=== PATIENT | female | born 1970 | race Caucasian/White ===

== ENCOUNTER → 2021-01-06 07:46 | Outpatient (CLI) | payer OTHER, SELFPAY ==
[2021-01-06 08:10] LABS: Basophils % 0.6 % (0.1-2.0); Eosinophils # 0.2 K/mm3 (0.0-0.4); Hemoglobin 14.1 g/dL (12.2-16.2); Lymphocytes % 35.2 % (10-50); Mean Corpuscular HGB Conc 33.6 g/dL (31.8-35.4); Mean Corpuscular Volume 89.3 fl (81-99); Mean Platelet Volume 8.4 fl (7.4-10.4); Monocytes # 0.2 K/mm3 (0.1-1.0); Monocytes % 4.2 % (1.7-9.3); Neutrophils # 3.2 K/mm3 (1.8-7.8); Neutrophils % 56.8 % (37.0-80.0); Platelet Count 182 K/mm3 (142-424); Red Blood Count 4.71 M/mm3 (4.20-5.40); Red Cell Distribution Width 13.4 % (11.5-17.5); Urine Pregnancy, HCG Qual. Negative (Negative); White Blood Count 5.7 K/mm3 (4.8-10.8)
[2021-01-06 09:01] LABS: Coronavirus 19 IgG Antibody Negative (Negative); Coronavirus 19 IgM Antibody Negative (Negative)
[2021-01-06 09:34] LABS: Alanine Aminotransferase 15 U/L (12-78); Albumin Level 4.4 g/dl (3.5-5.0); Albumin/Globulin Ratio 1.3 (1.1-1.8); Alkaline Phosphatase 78 U/L (38-126); Anion Gap 12.3 mEq/L (5-15); Aspartate Amino Transferase 20 U/L (14-36); Bilirubin,Total 0.7 mg/dl (0.2-1.3); Blood Urea Nitrogen 12 mg/dl (7-17); Calcium 9.3 mg/dl (8.4-10.2); Carbon Dioxide 22 mmol/L (22.0-30.0); Chloride 106 mmol/L (98-107); Estimated Glomerular Filt Rate 67 ml/min (>60); GFR (African American) 81 ML/MIN (>60); Globulin 3.3 g/dL (1.3-3.2); Glucose 102 mg/dl (74-100); Potassium 4.3 mmoL/L (3.5-5.1); Sodium 136 mmol/L (136-145); Total Protein,Serum 7.7 g/dl (6.3-8.2)
== END ==
PROVIDERS: Visit Provider Surgery
DX: Z01.818 Encounter for other preprocedural examination (principal); Z20.822 Contact with and (suspected) exposure to COVID-19; K80.20 Calculus of gallbladder without cholecystitis without obstruction
CPT/HCPCS: 36415; 80053; 81025; 85025; 86328

== ENCOUNTER 2021-01-08 06:05 | Day surgery (SDC) | payer OTHER, SELFPAY ==
[2021-01-07 08:02] VITALS: BMI 36.6
[2021-01-08] VITALS (12 sets, daily range): BP systolic 117–155; BP diastolic 72–93; PULSE 60–94; RESP 16–18; TEMP 36.4–43; O2SAT 95–98
--- NOTE | 2021-01-08 06:41 | P.PN_ITS ---
[facility] Anesthesia Checklist - Structural Data Admitted From: Home Planned Operative Procedure/s: twyla bere Consent for Planned Operative Procedure(s) Verified: Yes - Additional verifications Anesthesia Reactions: No Hx Blood Transfusions: No Blood Transfusion Reaction: No - Airway Assessment C-Spine Mobility Assessed: Yes TMJ Mobility Assessed: Yes Dentition: Good Dentition - Neurological Assessment Level of Consciousness: Awake, Alert, Appropriate - Anesthesia Plan Anesthesia Risk discussed: Yes Anesthesia Plan: Verified ASA Class: I Anesthesia Type: General [facility] History I have reviewed the patient's past medical history: Yes Medical History: Reports:: Asthma Denies:: Cancer, Diabetes Mellitus Type 1, Diabetes Mellitus Type 2, Internal Pacemaker, MRSA, Seizures *Have you ever received a pneumonia vaccine?: Yes *Have you received a flu vaccine this season?: No Other Medical History: Reports: Thyroid Disease. Denies: Blood Transfusion Reaction Anesthesia experience/problems:: none Other Surgeries: Yes: Colonoscopy. No: Pacemaker Amputation: No Fractures: No - *Social History Last grade of school completed: High school graduate Smoking Status: Never smoker Alcohol Intake: never Substance Use Type: denies use *Occupational Status:: employed Housing: house Household Members: family *Travel in the last 8 weeks: None Family Hx:: No significant family history
--- NOTE | 2021-01-08 08:14 | HMH.OPNOTE ---
Date of procedure: 01/08/21 Pre-op Diagnosis:: Symptomatic cholelithiasis Post-op Diagnosis:: Chronic calculus cholecystitis Procedure performed:: Laparoscopic cholecystectomy Surgeon:: Merrick Velásquez MD DIRECTOR OF GRADUATE MEDICAL EDUCATION:: Tico Ojeda Anesthesia: GETA Estimated blood loss (mL): 15 Operative findings:: Significant pericholecystic fat stranding Infundibular thickening Moderately enlarged node of [place] Operative note:: After informed consent was obtained, the patient was taken to the operating room and placed in the supine position. General anesthesia was induced and the abdomen was prepped and draped in a sterile fashion. After infiltration with local anesthetic an infraumbilical incision was made. A Veress needle was placed in position. The abdomen was insufflated. A 5 mm optical trocar was placed in position. Under direct visualization, a 12 mm trocar was placed in the subxiphoid position and 2 additional 5 mm trocars were placed in the right upper quadrant. The gallbladder was elevated up and over the liver margin. The tissue around the cystic duct was carefully dissected. 3 clips were placed proximally and the duct was transected with harmonic henrik. Harmonic henrik were then utilized to dissect the gallbladder away from the liver margin with careful attention to the control of the cystic artery. The gallbladder was placed in a retrieval bag and removed through the subxiphoid trocar site. The right upper quadrant was thoroughly irrigated. No active bleeding or bile leak was noted. Fascia at the subxiphoid trocar site was reapproximated utilizing the NeoClose device. The remaining trocars were removed. All wounds were irrigated and skin was closed with 4-0 Monocryl in a subcuticular fashion. Steri-Strips were applied. The patient's anesthetic agents were reversed and extubation was completed prior to transfer to recovery in stable condition. Condition: stable Disposition: PACU Specimens:: Gallbladder Complications:: No immediate
--- NOTE | 2021-01-08 08:21 | P.PN_ITS ---
[facility] Anesthesia Record Part I Intake, IV Amount: 1,200 Estimated blood loss (mL): 10 Urine output (mL): 0 Blood Pressure: 138/77 SaO2: 98 Pulse Rate: 94 Respiratory Rate: 16 Temperature: 99 F Patient is:: Drowsy, Stable Stable to PACU at:: 08:15
--- NOTE | 2021-01-08 08:46 | PC.NURSE ---
0842-detailed report called to DIA Shahid \ 0845-pt transported to post op via stretcher w/bronwyn rails up and left in care of DIA Shahid vss pt stable
--- NOTE | 2021-01-08 10:45 | HMH.ANESII ---
[facility] Anesthesia Record Part II Discharge Time: 08:45 Destination: Surgical Day Care (OP Surgery) PACU nurse assessment reviewed?: Yes Patient Condition:: Good Anesthesia Complications:: None Swallowing reflex intact?: Yes Cyanosis?: No Blood Pressure: 124/72 Pulse Rate: 68 Temperature: 97.6 F Mental Status: Alert & Oriented Pain level:: 0 Nausea and/or vomitting:: None Intake, IV Amount: 0
== END 2021-01-08 09:50 | disposition home or self-care (01) ==
PROVIDERS: PCP Nurse Practitioner Family; Visit Provider Surgery
PROC: 0FT44ZZ Resection of Gallbladder, Percutaneous Endoscopic Approach (ICD-10-PCS; CPT 47562; principal; 2021-01-08 07:30)
DX: K80.10 Calculus of gallbladder with chronic cholecystitis without obstruction; J45.909 Unspecified asthma, uncomplicated; E07.9 Disorder of thyroid, unspecified; Z79.899 Other long term (current) drug therapy; Z88.0 Allergy status to penicillin
CPT/HCPCS: 47562; 96374; J2405; J2710

== ENCOUNTER → 2022-08-05 11:01 | Outpatient (CLI) | payer OTHER, SELFPAY ==
--- NOTE | 2022-08-05 11:05 | CA_ITS ---
FINAL REPORT TECHNIQUE: Compression ortega scale and Doppler evaluation CLINICAL HISTORY: PT C/O LUMP DISTAL LATERAL CALF X SEVERAL DAYS,NKI FINDINGS: Femoral and popliteal veins show normal compressibility and flow. Visualized portion of the calf veins are patent by Doppler exam. No fluid collection or mass in the posterolateral left calf. IMPRESSION: No evidence of left lower extremity deep venous thrombosis Reviewed, Interpreted and Dictated by Edwin Vaughan MD Transcribed by Yousuf Garcia Authenticated and [facility]
== END ==
PROVIDERS: Visit Provider Nurse Practitioner Family
DX: R22.42 Localized swelling, mass and lump, left lower limb (principal)
CPT/HCPCS: 93971

== ENCOUNTER 2024-10-03 16:52 | Emergency (ER) | payer OTHER, SELFPAY ==
[2024-10-03 16:54] VITALS: BP 125/82; PULSE 95; RESP 18; TEMP 36.6; O2SAT 97; BMI 32.5
[2024-10-03 17:03] VITALS: BP 125/82; PULSE 74; O2SAT 100
--- OUTSIDE RECORDS SUMMARY | 2024-10-03 17:13 | XMS_ITS | Encounter Summary ---
Author Organization Healthcare Address [address] [place] [address] Care Team Providers Care Seed Laboratory Assistant Name Role Phone Unavailable Primary Care Provider Unavailabl e Encounter Details Date Type Department Care Team (Late st Contact Info) Description 05/25/2015 [facility] Vitals Encounter [facility] [address] [place] [address] Provider, MD Suzie [address] [place] [address] Social History Tobacco Use Types Packs/Day Years Used Date Smoking Tobacco: Never Assessed Comments Unknown Sex and Gender Information Value Date Recorded Sex Assigned at Not on file Legal Sex Female 6:59 PM EDT Gender Identity Not on file Sexual Orientation Not on file documented as of this encounter Last Filed Vital Signs Vital Sign Reading Time Taken Comments Blood Pressure - - Pulse - - Temperature - - Respiratory Rate - - Oxygen Saturation - - Inhaled Oxygen Concentration - - Weight 76.2 kg (167 lb 14.4 oz) 015 11:23 AM EDT Height 165.1 cm (5' 5 ) 05/25/2015 11:2 3 AM EDT Body Mass Index 27.94 05/25/2015 11:23 AM EDT documented in this encounter Plan of Treatment Not on file documented as of this encounter Visit Diagnoses Not on filedocumented in this encounter
--- OUTSIDE RECORDS SUMMARY | 2024-10-03 17:13 | XMS_ITS | Encounter Summary ---
Author Organization [facility] [place] [address] Care Team Providers Care Training Professional Name Role Phone Deepthi Liu APRN Primary Care Provider Encounter Details Date Type Department Care Team (Latest Contact Info) Description 04/22/2022 Travel Social History Tobacco Use Types Packs/Day Years Used Date Smoking Tobacco: Never Assessed Comments Unknown Sex and Gender Information Value Date Recorded Sex Assigned at Not on file Legal Sex Female 11:43 AM EDT Gender Identity Not on file Sexual Orientation Not on file COVID-19 Exposure Response Date Recorded In the last 10 days, have yo u been in contact with someone who was confirmed or suspected to have Coronavirus/COVID-19? No / Unsure 04/22/2022 11:50 AM EDT documented as of this encounter Plan of Treatment Not on file documented as of this encounter Visit Diagnoses Not on filedocumented in this encounter Care Teams Training Professional Relationship Specialty Start Date End Date Deepthi Liu APRN [address] [facility] [place] [id number] PCP - General Nurse Practitioner-Family 03/25/22 documented as of this encounter
--- OUTSIDE RECORDS SUMMARY | 2024-10-03 17:13 | XMS_ITS | Encounter Summary ---
Author Organization [place] [address] Care Team Providers Care Vp Informatics Name Role Phone Deepthi Liu APRN Primary Care Provider [phone] Reason for Referral * Mammography (Routine) - Closed Specialty Diagnoses / Procedures Referred By Marco rojas Referred To Contact Radiology Diagnoses Abnormal mammogram Procedures MM MAMMO DIGITAL PARTH DIAGN LEFT MM MAMMO DIGITAL PARTH DIAGN LEFT Deepthi Liu, SOLANGE [address] [facility] [place] [address] Phone: tel: fax: Referral ID Status Reason Start Date Expiration Date Visits Re quested Visits Authorized [id number] Closed 04/14/2022 04/14/2024 1 1 Reason for Visit * Mammography (Routine) - Closed Specialty Diagnoses / Procedures Referred By Marco rojas Referred To Contact Radiology Diagnoses Abnormal mammogram Procedures MM MAMMO DIGITAL PARTH DIAGN LEFT MM MAMMO DIGITAL PARTH DIAGN LEFT Deepthi Liu APRN [address] [place] [address] [place] [address] Phone: tel: fax: Referral ID Status Reason Start Date Expiration Date Visits Re quested Visits Authorized [id number] Closed 04/14/2022 04/14/2024 1 1 Encounter Details Date Type Department Care Team (Latest Contact Info) Description 04/22/2022 12:26 PM EDT - 04/22/2022 11:59 PM EDT Hospital Encounter [facility] Mamm[facility] [place] [address] Ra Noeama Dianaan, PUNCHER AND FASTENER [address] [facility] [place] [address] Abnormal mammogram Discharge Disposition: Home or Self Care Social History Tobacco Use Types Packs/Day Years [...] AM EDT documented as of this encounter Discharge Disposition Disposition Code Departure Means Destination Home or Self Care documented in this encounter Plan of Treatment Not on file documented as of this encounter Procedures Procedure Name Priority Date/Time Associated Diagnosis Comments MM MAMMO DIGITAL PARTH DIAGN LEFT Routine 04/22/2022 12:38 PM EDT Abnormal mammogram documented in this encounter Results * MM MAMMO DIGITAL PARTH DIAGN LEFT (04/22/2022 12:38 PM EDT) Anatomical Region Laterality Modality Breast Left Mammography 04/22/2022 1:21 PM EDT Impressions 04/22/2022 1:21 PM EDT Negative ??([id number]) There is no mammographic evidence of malignancy in the left breast. ~ RECOMMENDATION: Routine screening mammogram in 1 year. The above findings and recommendations were discussed with the patient in person on the date of the exam by the technologist. ~ DISCLAIMER * Any patient with a palpable abnormality, unexplained by breast imaging, should be managed on clinical basis by the attending physician. * Breast imaging has a false negative rate of 15%. * The patient was notified by mail of the results of this examination. *The patient's information was entered into a reminder system with a target due date for the next mammogram, in accordance with the [employer] and the Society of Breast Imaging recommendations. Narrative 04/22/2022 1:21 PM EDT Procedure:MM MAMMO DIGITAL PARTH DIAGN LEFT ~ Reason for exam: addl evaluation requested from abnormal screening. The patient is a 51-year-old female who presents as a callback from screening for an asymmetry in the lateral left breast, only well seen on the CC view. ~ MM MAMMO DIGITAL PARTH DIAGN LEFT CC and MLO view(s) were taken of the left breast. The breast tissue is heterogeneously dense. ??This may lower the sensitivity of mammography. Prior study comparison: Compared with prior studies, the most recent being 03/25/22. On the additional views of the left breast, there are no suspicious masses, microcalcifications, or areas of architectural distortion. The asymmetry elongates on the additional views and is attributed to a summation artifact. ~ Procedure Note Cris Kimball MD - 04/22/2022 Procedure:MM MAMMO DIGITAL PARTH DIAGN LEFT ~ Reason for exam: addl evaluation requested from abnormal screening. The patient is a 51-year-old female who presents as a callback from screening for an asymmetry in the lateral left breast, only well seen on the CC view. ~ MM MAMMO DIGITAL PARTH DIAGN LEFT CC and MLO view(s) were taken of the left breast. The breast tissue is heterogeneously dense. This may lower thesensitivity of mammography. Prior study comparison: Compared with prior studies, the most recentbeing 03/25/22. On the additional views of the left breast, there are no suspiciousmasses, microcalcifications, or areas of architectural distortion. The asymmetry elongates on the additional views and is attributed to a summation artifact. ~ IMPRESSION: Negative ([id number]) There is no mammographic evidence of malignancy in the left breast. ~ RECOMMENDATION: Routine screening mammogram in 1 year. The above findings and recommendations were discussed with the patientin person on the date of the exam by the technologist. ~ DISCLAIMER * Any patient with a palpable abnormality, unexplained by breast imaging, should be managed on clinical basis by the attending physician. * Breast imaging has a false negative rate of 15%. * The patient was notified by mail of the results of this examination. *The patient's information was entered into a reminder system with atarget due date for the next mammogram, in accordance with the [employer] and the Society of Breast Imaging recommendations. Deepthi Liu APRN IM MAMMOGRAPHY ORDERABLES Final Result documented in this encounter Visit Diagnoses Diagnosis Abnormal mammogram Abnormal mammogram, unspecified documented in this encounter Care Teams Vp Informatics Relationship Specialty Start Date End Date Deepthi Liu APRN [address] [place] [address] [place] [address] PCP - General Nurse Practitioner-Family 03/25/22 documented as of this encounter
--- OUTSIDE RECORDS SUMMARY | 2024-10-03 17:13 | XMS_ITS | Clinical Summary ---
Author Organization [facility] C T Address [address] [facility] [address] Phone Care Team Providers Care Medical Support Assistant Name Role Phone Deepthi Liu Osmin SOLANGE Primary Care Provider Social History Tobacco Use Types Packs/Day Years Used Date Smoking Tobacco: Never Assessed Comments Unknown Sex and Gender Information Value Date Recorded Sex Assigned at Not on file Legal Sex Female 11:43 AM EDT Gender Identity Not on file Sexual Orientation Not on file Plan of Treatment Health Maintenance Due Date Last Done Comments Annual Wellness Exam 1974 DTaP/TDaP/Td (1 - Tdap) 1991 Hepatitis B Vaccine (1 of 3 - 19+ 3-dose series) 1991 Cervical Cancer Screening 1993 Pap Smear 1993 HPV/Pap Cotest 2002 Cologuard 2017 Colon Cancer Screening 2017 Colonoscopy 2017 FIT 2017 Sigmoidoscopy 2017 Virtual Colonography 2017 Zoster (1 of 2) 2022 Breast Cancer Screening 04/22/2024 04/22/20, 03/25/2022 COVID-19 Vaccine (1 - 2023-2 5 season) 2024 Influenza Vaccine (#1) 2024 Pneumococcal Vaccine 0-64 Aged Out No longer eligible based on patient's age to complete this topic Procedures Procedure Name Priority Date/Time Associated Diagnosis Comments MM MAMMO DIGITAL PARTH DIAGN LEFT Routine 04/22/2022 12:38 PM EDT Abnormal mammogram from Last 3 Months or Most Recently Relevant to Health Maintenance Results * MM MAMMO DIGITAL PARTH DIAGN LEFT (04/22/2022 12:38 PM EDT) Anatomical Region Laterality Modality Breast Left Mammography 04/22/2022 1:21 PM EDT Impressions 04/22/2022 1:21 PM EDT Negative ??([id number]) There is no mammographic evidence of malignancy [...] the next mammogram, in accordance with the [employer] and the Society of [...] to a summation artifact. ~ IMPRESSION: Negative ([id number]) There is no mammographic evidence of malignancy [...] the next mammogram, in accordance with the [employer] and the Society of Breast Imaging recommendations. Deepthi Liu APRN [facility] MAMMOGRAPHY ORDERABLES Final Result from Last 3 Months or Most Recently Relevant to Health Maintenance Insurance [employer] Care Teams Medical Support Assistant Relationship Specialty Start Date End Date Deepthi Liu APRN [address] [place] [address] [place] [address] PCP - General Nurse Practitioner-Family 03/25/22
--- OUTSIDE RECORDS SUMMARY | 2024-10-03 17:13 | XMS_ITS | Referral Summary ---
Author Organization [facility][1] [facility] Kartik Address [address] [facility] [place] [address] Phone Care Team Providers Care Fitness Attendant Name Role Phone Deepthi Liu SOLANGE Primary Care Provider [phone] Social History Tobacco Use Types Packs/Day Years Used Date Smoking Tobacco: Never Assessed Comments Unknown Sex and Gender Information Value Date Recorded Sex Assigned at Not on file Legal Sex Female 11:43 AM EDT Gender Identity Not on file Sexual Orientation Not on file Plan of Treatment Not on file Procedures Procedure Name Priority Date/Time Associated Diagnosis Comments MM MAMMO DIGITAL PARTH DIAGN LEFT Routine 04/22/2022 12:38 PM EDT Abnormal mammogram from Last 3 Months or Most Recently Relevant to Health Maintenance Results * MM MAMMO DIGITAL PARTH DIAGN LEFT (04/22/2022 12:38 PM EDT) Anatomical Region Laterality Modality Breast Left Mammography 04/22/2022 1:21 PM EDT Impressions 04/22/2022 1:21 PM EDT Negative ??([id number]) There is no mammographic evidence of malignancy [...] the next mammogram, in accordance with the [employer] and the Society of [...] to a summation artifact. ~ IMPRESSION: Negative ([id number]) There is no mammographic evidence of malignancy [...] the next mammogram, in accordance with the [employer] and the Society of Breast Imaging recommendations. Result [facility] Deepthi Liu APRN IM MAMMOGRAPHY ORDERABLES Final Result from Last 3 Months or Most Recently Relevant to Health Maintenance Insurance [employer] Care Teams Fitness Attendant Relationship Specialty Start Date End Date Deepthi Liu APRN [address] [facility] [address] [place] [id number] PCP - General Nurse Practitioner-Family 03/25/22
--- OUTSIDE RECORDS SUMMARY | 2024-10-03 17:13 | XMS_ITS | Encounter Summary ---
Author Organization [place] [address] Care Team Providers Care Channel Man Name Role Phone Ra Noeama Solorio APRN Primary Care Provider Reason for Visit * Reason Onset Date Comments Abnormal Radiology 04/12/2022 Encounter Details Date Type Department Care Team (Late st Contact Info) Description 04/12/[address] [phone] Waleska Santos, Clerical Staff Abnormal Radiology Social History Tobacco Use Types Packs/Day Years [...] AM EDT documented as of this encounter Miscellaneous Notes * Telephone Encounter - Reynold Hidalgo RN - 04/14/2022 2:17 PM EDT Scheduled 04/22 in EDG * Telephone Encounter - Maritza Negrete RN - 04/14/2022 12:08 PM EDT Called and spoke with patient, informed of recommendation for additional breast imaging, she statesunderstanding. Transferred to scheduling. * Telephone Encounter - Maritza Negrete RN - 04/12/2022 9:32 AM EDT Attempted contact, left a voice mail requesting a return call to [phone]; additional breast imaging recommended. * Telephone Encounter - Waleska Santos, Clerical Staff - 04/12/2022 8:55 AM EDT Insurance Gila The ordering HUMAN SERVICES INSTRUCTOR is Deepthi Liu documented in this encounter Plan of Treatment Not on file documented as of this encounter Visit Diagnoses Not on filedocumented in this encounter Care Teams Channel Man Relationship Specialty Start Date End Date Deepthi Liu APRN [address] [facility] [place] [address] PCP - General Nurse Practitioner-Family 03/25/22 documented as of this encounter
--- OUTSIDE RECORDS SUMMARY | 2024-10-03 17:13 | XMS_ITS | Clinical Summary ---
Author Organization Healthcare Address [address] [place] [address] Care Team Providers Care Air Traffic Controller Center Name Role Phone Unavailable Primary Care Provider Unavailabl e Family History Medical History Relation Name Comments Diabetes Other 1 Hyperlipidemia Other 2 Hypertension Other 3 Relation Name Status Comments Other 1 Other 2 Other 3 Social History Tobacco Use Types Packs/Day Years Used Date Smoking Tobacco: Never Comments Unknown Sex and Gender Information Value Date Recorded Sex Assigned at Not on file Legal Sex Female 6:59 PM EDT Gender Identity Not on file Sexual Orientation Not on file Last Filed Vital Signs Vital Sign Reading Time Taken Comments Blood Pressure - - Pulse - - Temperature - - Respiratory Rate - - Oxygen Saturation - - Inhaled Oxygen Concentration - - Weight 76.2 kg (167 lb 14.4 oz) 015 11:23 AM EDT Height 165.1 cm (5' 5 ) 05/25/2015 11:2 3 AM EDT Body Mass Index 27.94 05/25/2015 11:23 AM EDT Plan of Treatment Not on file
--- OUTSIDE RECORDS SUMMARY | 2024-10-03 17:14 | XMS_ITS | Encounter Summary ---
Author Organization [place] [address] Care Team Providers Care Upholstery Department Supervisor Name Role Phone Deepthi Liu APRN Primary Care Provider [phone] Reason for Referral * Mammography (Routine) - Closed Specialty Diagnoses / Procedures Referred By Marco rojas Referred To Contact Radiology Diagnoses Encounter for screening mammogram for malignant neoplasm of breast Procedures MM MAMMO DIGITAL PARTH SCREEN Cathy Marquez DO [address] [place] [address] [place] [address] Phone: tel: fax: Referral ID Status Reason Start Date Expiration Date Visits Re quested Visits Authorized [id number] Closed 02/01/2022 02/02/2024 1 1 Reason for Visit * Mammography (Routine) - Closed Specialty Diagnoses / Procedures Referred By aMrco rojas Referred To Contact Radiology Diagnoses Encounter for screening mammogram for malignant neoplasm of breast Procedures MM MAMMO DIGITAL PARTH SCREEN Cathy Marquez DO [address] [place] [address] [place] [address] Phone: tel: fax: Referral ID Status Reason Start Date Expiration Date Visits Re quested Visits Authorized [id number] Closed 02/01/2022 02/02/2024 1 1 Encounter Details Date Type Department Care Team (Latest Contact Info) Description 03/25/2022 8:59 AM EDT - 03/25/2022 11:59 PM EDT Hospital Encounter Mobile Mammography Other Location View online schedule for mobile van location [phone] Cathy Cancino DO [address] [facility] [place] [address] Encounter for screening mammogram for malignant neoplasm of breast Discharge Disposition: Home or Self Care Social [...] suspected to have Coronavirus/COVID-19? No / Unsure 03/25/2022 8:52 AM EDT documented as of this encounter Discharge Disposition Disposition Code Departure Means Destination Home or Self Care documented in this encounter Plan of Treatment Not on file documented as of this encounter Procedures Procedure Name Priority Date/Time Associated Diagnosis Comments MM MAMMO DIGITAL PARTH SCREEN BILAT Routine 03/25/2022 9:05 AM EDT Encounter for screening mammogram for malignant neoplasm of breast documented in this encounter Results * MM MAMMO DIGITAL PARTH SCREEN BILAT (03/25/2022 9:05 AM EDT) Anatomical Region Laterality Modality Breast Bilateral Mammography 04/11/2022 2:09 PM EDT Impressions 04/11/2022 2:09 PM EDT Incomplete-need additional imaging evaluation ([id number]) ~ RECOMMENDATION: Special view mammogram and ultrasound of the left breast. Tomosynthesis recommended ~ DISCLAIMER * Any patient with a [...] the next mammogram, in accordance with the [employer] and the Society of Breast Imaging recommendations. Narrative 04/11/2022 2:09 PM EDT Procedure:MM MAMMO DIGITAL PARTH SCREEN BILAT ~ Reason for exam: screening, asymptomatic. Z12.31-Encounter for screening mammogram for malignant neoplasm of [id number]-CM ~ MM MAMMO DIGITAL PARTH SCREEN BILAT Bilateral CC and MLO view(s) were taken. The breast tissue is heterogeneously dense. ??This may lower the sensitivity of mammography. Prior study comparison: Compared with prior studies the most recent being [place], [place] 12/04/17 New 1 cm focal asymmetry in the left breast ??projects in the retroareolar region on the CC view. There is no MLO correlate. ~ Glandular pattern is otherwise stable. No suspicious microcalcification or distortion. ~ Procedure Note Vaughn Singer MD - 04/11/2022 Procedure:MM MAMMO DIGITAL PARTH SCREEN BILAT ~ Reason for exam: screening, asymptomatic. Z12.31-Encounter for screening mammogram for malignant neoplasm of shvpyf-PBS-33-CM ~ MM MAMMO DIGITAL PARTH SCREEN BILAT Bilateral CC and MLO view(s) were taken. The breast tissue is heterogeneously dense. This may lower thesensitivity of mammography. Prior study comparison: Compared with prior studies the most recentbeing [place], [place] 12/04/17 New 1 cm focal asymmetry in the left breast projects in theretroareolar region on the CC view. There is no MLO correlate. ~ Glandular pattern is otherwise stable. No suspicious microcalcificationor distortion. ~ IMPRESSION: Incomplete-need additional imaging evaluation ([id number]) ~ RECOMMENDATION: Special view mammogram and ultrasound of the left breast. Tomosynthesis recommended ~ DISCLAIMER * Any patient with a [...] the next mammogram, in accordance with the [employer] and the Society of Breast Imaging recommendations. us Cathy Cancino DO IMG MAMMOGRAPHY ORDERABLES Genie marte Result documented in this encounter Visit Diagnoses Diagnosis Encounter for screening mammogram for malignant neoplasm of breast Other screening mammogram documented in this encounter Care Teams Upholstery Department Supervisor Relationship Specialty Start Date End Date Deepthi Liu APRN [address] [facility] [place] [address] PCP - General Nurse Practitioner-Family 03/25/22 documented as of this encounter
--- OUTSIDE RECORDS SUMMARY | 2024-10-03 17:14 | XMS_ITS | Encounter Summary ---
Author Organization [facility] [place] [address] Care Team Providers Care Mesh Cutter Name Role Phone Deepthi Liu APRN Primary Care Provider Encounter Details Date Type Department Care Team (Latest Contact Info) Description 03/25/2022 Travel Social History Tobacco Use Types Packs/Day [...] on filedocumented in this encounter Care Teams Mesh Cutter Relationship Specialty Start Date End Date Deepthi Liu APRN [address] [facility] [place] [id number] PCP - General Nurse Practitioner-Family 03/25/22 documented as of this encounter
[2024-10-03] MEDS: LIDOCAINE 2% VISCOUS SOL 15ML UDC 15 ML PO (17:29)
--- NOTE | 2024-10-03 17:29 | ED_ITS ---
Discharge Plan Prescriptions Prescriptions: New AsperFlex (lidocaine HCl) 4 % ointment 1 ea topical Q6HP PRN (Reason: Hemorrhoid pain) Qty: 100 0RF No Action bupropion HCl 150 mg tablet sustained-release 12 hr 150 tab PO BID lisinopril 5 mg tablet 5 mg PO DAILY levothyroxine 75 mcg tablet 75 mcg PO DAILY Air Protector 1,000-50 mg tablet, effervescent 1 each PO DAILY hydrocodone-acetaminophen 1 TAB tablet 1 - 2 tab PO Q6HP PRN (Reason: post-op pain) Qty: 17 0RF Referrals Follow up/Referrals: Kt Julio MD [Staff Physician] - See instructions Gumaro Qureshi APRN [Primary Care Provider] - See instructions Activity Restrictions/Add. Instructions Additional Instructions/Restrictions: Utilize the witch varinder that we have given you as directed on the box. I have sent a prescription to your [facility] for a topical cream. Please utilize a thin layer every 6 hours on only the superficial hemorrhoid not inside the rectal canal. I referred you to general surgery please call on Monday to make an appointment. Turn to the ER for any worsening signs or symptoms as needed Clinical Impressions Clinical Impression: External hemorrhoid, thrombosed Instructions Patient Instructions: DI for Hemorrhoids Print Language Print Language: Ukrainian Discharge ED Provider: Shahram Mujica General Adult HPI General Chief complaint: Urogenital-Female Stated complaint: enlarged hemorrhoid Time Seen by Provider: 10/03/24 17:29 Mode of Arrival: Ambulatory Source of Information: Patient Limitations: No Limitations Description of Symptoms (Recalled from ER Triage Doc. by RN): lg hemorrhoid causing pain History of Present Illness HPI narrative: Patient presents for evaluation of a painful hemorrhoid. Patient is a 54-year-old female presents to the emergency department for painful hemorrhoid. She states that she has had periodic hemorrhoids since she gave but they have never been ever this painful. She did have to have 1 excised that was thrombosed previously. Patient states that she having a bowel movement last night that was not particularly difficult in fact her stool was very loose but she began feeling significant amount of pain at the anterior aspect of her rectum near the perineum. It is only progressed since. She states it hurts to sit or stand for long time or even lie on her back but she is able to tolerate if she is lying on her side denies any fever chills hemoptysis hematochezia melena nausea vomiting diarrhea. She does report that it hurts to pass gas and stool currently today. She denies any chest pain shortness of breath fever chills hemoptysis hematochezia melena. Related Data Home Medications ?Medication ?Instructions ?Recorded ?Confirmed bupropion HCl 150 mg tablet,12 hr 150 tab PO BID Depression 12/09/20 01/07/21 sustained-release levothyroxine 75 mcg tablet 75 mcg PO DAILY thyroid 12/09/20 01/07/21 lisinopril 5 mg tablet 5 mg PO DAILY High blood pressure 12/09/20 01/07/21 mv-min-vit C 1,000 1 each PO DAILY Supplement 12/09/20 01/07/21 [id number]-[id number]-[id number]-herb 124 50 mg efferves tablet (Air Protector) Previous Rx's ?Medication ?Instructions ?Recorded hydrocodone 5 mg-acetaminophen 325 1 - 2 tab PO Q6HP PRN post-op pain 01/08/21 mg tablet #17 tabs lidocaine HCl 4 % topical ointment 1 ea topical Q6HP PRN Hemorrhoid 10/03/24 (AsperFlex (lidocaine HCl)) pain #100 grams Allergies Allergy/AdvReac Type Severity Reaction Status Date / Time Penicillins Allergy Mild Rash Verified 01/20/21 09:42 [facility] Disclaimer: The information contained in this section may have been updated after the patient was seen, as this information can be updated by other users. 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 caffeine: Yes Other Medical History Have you received the Flu Vaccine for this season: No Have you received the Pneumonia Vaccine: No ROS Obtained: Yes Systems reviewed as appropriate & no additional complaints except as documented Physical Exam General General appearance: alert and in no apparent distress Respiratory Respiratory exam: Present normal lung sounds bilaterally Cardiovascular Cardiovascular exam: Present regular rate Neurological Exam Neurological exam: Present alert and oriented X3 Medical Decision Making Medical Records Medical records reviewed: Yes I reviewed the patient's medical records. Screening: Per USPSTF and CDC recommendations, given the prevalence of disease in our region, it is our hospital?s policy to screen for HIV and viral Hepatitis for all patients aged 18 and over and those with ongoing risk factors. González Inquiry Pt receiving controlled substance: No Vital Signs: 10/03/24 16:54 10/03/24 17:03 10/03/24 17:30 Temperature 98 F Temperature Source Oral Pulse Rate 74 77 Pulse Rate [Right] 95 H Respiratory Rate 18 Blood Pressure 125/82 119/71 Blood Pressure [Right Arm] 125/82 Blood Pressure Mean [Right Arm] 96 Blood Pressure Source Blood Pressure Position 02 Sat by Pulse Oximetry 97 100 96 Oxygen Delivery Method Room Air Room Air 10/03/24 17:38 Temperature 98.6 F Temperature Source Oral Pulse Rate 74 Pulse Rate [Right] Respiratory Rate 20 Blood Pressure 118/71 Blood Pressure [Right Arm] Blood Pressure Mean [Right Arm] Blood Pressure Source Automatic Cuff Blood Pressure Position Supine 02 Sat by Pulse Oximetry Oxygen Delivery Method Room Air Orders (Tests/Meds): ED MEDICATIONS Generic Name Dose Route Start Last Admin Trade Name Freq PRN Reason Stop Dose Admin Witmaureen Garcia 1 each 10/03/24 17:42 10/03/24 17:44 Witmaureen Garcia 40 Pads/Box TP 11/02/24 17:41 1 each NEEDED PRN Administration Pain Discontinued Medications Generic Name Dose Route Start Last Admin Trade Name Freq PRN Reason Stop Dose Admin Lidocaine HCl 15 ml 10/03/24 17:27 10/03/24 17:29 Lidocaine 2% Viscous Annie 15ml Udc PO 10/03/24 17:28 15 ml ONCE ONE Administration ORDERS Category Date Time Status HIV (1&2) Antibody Rapid Stat Lab 10/03/24 17:12 Ordered Hep C Ab with Reflex to RNA Stat Lab 10/03/24 17:12 Ordered Medical Decision Narrative: In summary patient is a 54-year-old female who presents to the emergency department for evaluation of hemorrhoid pain. Patient is hemodynamically stable upon arrival, afebrile. Physical exam is remarkable for a thrombosed hemorrhoid at the anterior apex of her rectum in the varicosities are on both the left and right side however the thrombosed portion is on the left. There is no induration or fluctuance noted.. Differential diagnosis includes could include prolapse internal but it is unlikely and digital rectal exam confirms that it is external. Initial workup was considered with labs and imaging however patient has no red flags thus it is deferred. Initial interventions include topical anesthetics with Tucks and viscous lidocaine. Given this I had an interactive discussion with general surgery regarding patient management and they recommended conservative treatment and we will see her in the office next week. I then had an interactive discussion with the patient guarding management and she is comfortable going home and via patient directed decision making and discharge would prefer conservative management at home at first. Thus a prescription was sent for topical lidocaine ointment to her pharmacy as well as provided a box of Tucks pads here in the hospital with strict return precautions. Critical Care Critical Care Time Critical Care Time: No
[2024-10-03 17:30] VITALS: BP 119/71; PULSE 77; O2SAT 96
[2024-10-03 17:38] VITALS: BP 118/71; PULSE 74; RESP 20; TEMP 37; O2SAT 96
[2024-10-03] MEDS: WITCH HAZEL 40 PADS/BOX 1 EACH TP (17:44)
== END 2024-10-03 17:51 | disposition home or self-care (01) ==
PROVIDERS: Emergency Provider Emergency Medicine; PCP Nurse Practitioner Family
DX: K64.5 Perianal venous thrombosis (principal); K64.9 Unspecified hemorrhoids
CPT/HCPCS: 99283

== ENCOUNTER 2024-10-09 13:30 | Outpatient (CLI) | payer OTHER, SELFPAY ==
--- NOTE | 2024-10-09 14:08 | ECG_ITS ---
APPROVED REPORT Exam: Resting ECG HR:74 bpm ECG Measurements Heart Rate 74 AXES WA 132 P 56 QRSd 108 QRS 3 QT 378 T 63 QTc 406 Conclusion SINUS RHYTHM LOW QRS VOLTAGE IN PRECORDIAL LEADS [QRS DEFLECTION < 1.0 mV IN CHEST LEADS] NONSPECIFIC T-WAVE ABNORMALITY BORDERLINE ECG UNCONFIRMED REPORT Electronically signed by : Ashok Bright MD 10/09/2024 20:54:17
[2024-10-09 14:21] VITALS: BMI 32.3
[2024-10-09 14:33] LABS: Basophils % 0.8 % (0.1-2.0); Eosinophils # 0.2 K/mm3 (0.0-0.4); Eosinophils % 4.1 % (0.1-12.0); Hematocrit 43.2 % (37.0-47.0); Hemoglobin 15.1 g/dL (12.2-16.2); Lymphocytes # 1.8 K/mm3 (0.7-4.5); Lymphocytes % 34.8 % (10-50); Mean Corpuscular HGB Conc 35.1 g/dL (31.8-35.4); Mean Corpuscular Hemoglobin 31.3 pg (27.0-31.2); Mean Corpuscular Volume 89.2 fl (81-99); Mean Platelet Volume 8.3 fl (7.4-10.4); Monocytes # 0.3 K/mm3 (0.1-1.0); Monocytes % 4.7 % (1.7-9.3); Neutrophils # 2.9 K/mm3 (1.8-7.8); Neutrophils % 55.6 % (37.0-80.0); Platelet Count 161 K/mm3 (142-424); Red Blood Count 4.84 M/mm3 (4.20-5.40); White Blood Count 5.3 K/mm3 (4.8-10.8)
[2024-10-09 14:49] LABS: Chloride 105 mmol/L (98-107); Sodium 140 mmol/L (136-145)
[2024-10-09 14:50] LABS: Potassium 3.6 mmoL/L (3.5-5.1)
[2024-10-09 14:52] LABS: Blood Urea Nitrogen 10 mg/dl (7-17); Creatinine Clearance Estimated 102 mL/min (50-200); Estimated Glomerular Filt Rate 66 ml/min (>60); GFR (African American) 80 ML/MIN (>60)
[2024-10-09 14:53] LABS: Anion Gap 11.6 mEq/L (5-15); Calcium 9.7 mg/dl (8.4-10.2); Carbon Dioxide 27 mmol/L (22.0-30.0); Glucose 88 mg/dl (74-100)
== END 2024-10-09 23:59 | disposition home or self-care (01) ==
LOC: PREOP 13:31
PROVIDERS: PCP Nurse Practitioner Family; Visit Provider Surgery
DX: K64.5 Perianal venous thrombosis (principal); R94.31 Abnormal electrocardiogram [ECG] [EKG]
CPT/HCPCS: 80048; 85025; 93005

== ENCOUNTER 2024-10-11 08:23 | Day surgery (SDC) | payer OTHER, SELFPAY ==
[2024-10-09 13:45] VITALS: BMI 32.3
[2024-10-11] VITALS (10 sets, daily range): BP systolic 120–136; BP diastolic 73–95; PULSE 60–93; RESP 12–22; TEMP 36.4–36.8; O2SAT 95–100
[2024-10-11] MEDS: 0.9 % SODIUM CHLORIDE 1000ML 1,000 ML 25 ML IV (09:29)
[2024-10-11 09:50] LABS: HCG Qualitative, Serum Negative (Negative)
[2024-10-11] MEDS: LEVOFLOXACIN/D5W 500 MG/100 ML PIGGYBACK 100 MG IV ×2 (10:02→10:10)
[2024-10-11] MEDS: METRONIDAZ/SOD CHL 500 MG/100 ML PIGGYBACK 100 MG IV ×2 (10:02→10:05)
[2024-10-11] MEDS: LIDOCAINE 1% 10ML MDV 10 ML (10:15)
--- NOTE | 2024-10-11 10:18 | P.PNANES_ITS ---
[facility] Disclaimer: The information contained in this section may have been updated after the patient was seen, as this information can be updated by other users. 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 caffeine: Yes [facility] Anesthesia Checklist Patient Identification Patient Identification: Verbal (Name & ) Structural Data Admitted From: Home Planned Operative Procedure/s: excision hemorrhoid NPO Status Verified Time NPO: 00:00 Additional verifications Anesthesia Reactions: No Hx Blood Transfusions: No Blood Transfusion Reaction: No Airway Assessment Mallampati Score:: Class II C-Spine Mobility Assessed: Yes TMJ Mobility Assessed: Yes Dentition: Good Dentition Neurological Assessment Level of Consciousness: Awake and Alert Anesthesia Plan Anesthesia Risk discussed: Yes Anesthesia Plan: Verified ASA Class: II Anesthesia Type: General
--- NOTE | 2024-10-11 10:26 | EXP.OP.NOTE ---
Date of procedure: 10/11/24 Pre-op Diagnosis:: Thrombosed external hemorrhoid Post-op Diagnosis:: Same Procedure performed:: Incision and drainage/evacuation of thrombosed external hemorrhoids Surgeon:: Merrick Velásquez MD WEB OFFSET PRESS FEEDER:: Reji Herrera Anesthesia: local and LMA Estimated blood loss (mL): 5 Operative findings:: Multifocal complex hemorrhoids with superficial and deeper thrombosis Operative note:: After informed consent was obtained the patient was taken to the operating room and placed in the supine position. She was transferred to the left lateral decubitus position. General anesthesia with laryngeal mask airway was achieved. Her perianal region was prepped and draped in a sterile fashion. After infiltration of local anesthetic an incision was made overlying the left lateral margin thrombosis. Hematoma was evacuated. Palpation revealed a deeper thrombosed hemorrhoid which was carefully elevated and evacuated. No additional areas of thrombosis noted. The wound was left open and dressings were applied. Condition: stable Disposition: PACU Specimens:: None Complications:: No immediate
--- NOTE | 2024-10-11 10:29 | EXP.ANES.I ---
[facility] Anesthesia Record Part I Anesthesia Record I Intake, IV Amount: 500 Hydration: Adequate Estimated blood loss (mL): 0 Urine output (mL): 0 Blood Pressure: 136/89 SaO2: 100 Pulse Rate: 90 Airway Patency: Patent Respiratory Rate: 12 Temperature: 98 F Patient is:: Awake and Stable Stable to PACU at:: 10:25
[2024-10-11] MEDS: MEPERIDINE 25MG/ML 1ML SYRINGE 25 MG IV (10:42)
--- NOTE | 2024-10-11 12:06 | P.PNANES_ITS ---
[facility] Anesthesia Record Part II Anesthesia Record Part II Discharge Time: 10:55 Destination: Surgical Day Care (OP Surgery) PACU nurse assessment reviewed?: Yes Patient Condition:: Good Anesthesia Complications:: None Swallowing reflex intact?: Yes Airway Patency: Patent Cyanosis?: No Blood Pressure: 130/87 SaO2: 99 Respiratory Rate: 22 Pulse Rate: 60 Temperature: 97.5 F Mental Status: Alert & Oriented Pain level:: 3 Nausea and/or vomitting:: None Intake, IV Amount: 0 Hydration: Adequate
== END 2024-10-11 11:26 | disposition home or self-care (01) ==
PROVIDERS: PCP Nurse Practitioner Family; Visit Provider Surgery
PROC: (CPT 46083; principal; 2024-10-11 10:10)
DX: K64.5 Perianal venous thrombosis (principal)
CPT/HCPCS: 46083 ×2; 84703; 96374; J1956; J2175; J2250; J3010; J7030

== ENCOUNTER 2025-01-26 11:44 | Emergency (ER) | payer OTHER, SELFPAY ==
[2025-01-26 11:48] VITALS: BP 148/90; PULSE 69; RESP 18; TEMP 36.6; O2SAT 100; BMI 30.7
--- NOTE | 2025-01-26 11:59 | HMH.EDGENADL ---
Discharge Plan Disposition Patient Disposition: Home, Self-Care Condition: Good Prescriptions Prescriptions: New methocarbamol 750 mg tablet 750 mg PO Q6H PRN (Reason: muscle spasm) Qty: 20 0RF lidocaine 5 % adhesive patch,medicated 1 patch topical DAILY Qty: 30 0RF Rx Instructions: leave on most painful area for up to 12 hrs No Action bupropion HCl 150 mg tablet sustained-release 12 hr 150 mg PO BID lisinopril 10 mg tablet 10 mg PO DAILY albuterol sulfate 90 mcg/actuation HFA aerosol inhaler 1 puff inhalation Q6HP PRN (Reason: soa) Patient Comments: INHALE TWO (2) PUFFS EVERY FOUR (4) HOURS BY INHALATION ROUTE. levothyroxine [Synthroid] 88 mcg tablet 88 mcg PO DAILY lisinopril 5 mg tablet 5 mg PO DAILY Referrals Follow up/Referrals: Gumaro Qureshi APRN [Primary Care Provider] - See instructions Activity Restrictions/Add. Instructions Additional Instructions/Restrictions: As we discussed wear your sling is for comfort. I recommend ice alternating with heat whichever 1 feels better. I recommend 1000 mg of Tylenol every 8 hours alternating every 4 hours with 800 mg of Motrin with food for pain and swelling. I have sent a prescription for Lidoderm patch and Robaxin to your pharmacy. I have referred you to Dr. White of orthopedics. If you have continued new or worsening signs or symptoms follow-up sooner or return to the ER as needed. Clinical Impressions Clinical Impression: Acute pain of left shoulder Print Language Print Language: Divehi Discharge ED Provider: Michelle Pratt General Adult HPI <LITO Love - Last Filed: 01/26/25 12:49> General Chief complaint: PAIN Stated complaint: pain in L Shoulder and neck-no accident Time Seen by Provider: 01/26/25 11:59 Mode of Arrival: Ambulatory Source of Information: Patient Description of Symptoms (Recalled from ER Triage Doc. by RN): Pt presents for evaluation of left shoulder pain that started on monday evening. Pt states she got off the couch and it just started hurting . Pt states the pain has progressively become worse. Denies any injuries. Rates pain as a 9/10. Pt states she took a 7.5mg meloxicam today and aleve yesterday History of Present Illness HPI narrative: Patient presents for evaluation of the head and neck pain. Patient reports that since Monday she has been having pain in her left shoulder and neck. She denies any known trauma initially the pain does not radiate she has no numbness no tingling. Is made worse with trying to elevate her arm and the pain is described as aching. She denies any chest pain shortness of breath fever chills hemoptysis hematochezia melena nausea vomit diarrhea. Related Data Home Medications ?Medication ?Instructions ?Recorded ?Confirmed albuterol sulfate 90 mcg/actuation 1 puff inhalation Q6HP PRN soa 10/09/24 01/26/25 aerosol inhaler levothyroxine 88 mcg tablet 88 mcg PO DAILY 10/09/24 01/26/25 (Synthroid) lisinopril 5 mg tablet 5 mg PO DAILY 10/09/24 01/26/25 bupropion HCl 150 mg tablet,12 hr 150 mg PO BID Anxiety 10/16/24 01/26/25 sustained-release lisinopril 10 mg tablet 10 mg PO DAILY 10/16/24 01/26/25 Previous Rx's ?Medication ?Instructions ?Recorded lidocaine 5 % topical patch 1 patch topical DAILY #30 ea 01/26/25 methocarbamol 750 mg tablet 750 mg PO Q6H PRN muscle spasm #20 01/26/25 tabs Allergies Allergy/AdvReac Type Severity Reaction Status Date / Time Penicillins Allergy Mild Rash Verified 11/08/24 09:09 [facility] <LITO Love - Last Filed: 01/26/25 12:49> [facility] Disclaimer: The information contained in this section may have been updated after the patient was seen, as this information can be updated by other users. 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 caffeine: Yes Have you lived/traveled outside [place] in past 30 days?: No Contact w/someone who lives/traveled outside [place] past 30 days?: No Exposure to someone with infectious disease in past 14 days?: No Do you have a fever (greater than 100.4 F or 38 C)?: No Have you tested positive for COVID-19: No Exposed to someone with COVID-19 in past 14 days?: No Do you have a sore throat?: No Do you have a cough?: No Do you have any weakness?: No Do you have any diarrhea?: No Are you experiencing any unusual bleeding?: No Do you have any muscle aches/pain?: Yes Do you have any abdominal pain?: No Are you experiencing loss of taste or smell?: No Other Medical History Have you received the Flu Vaccine for this season: No Have you received the Pneumonia Vaccine: No <LITO Love - Last Filed: 01/26/25 12:49> ROS Obtained: Yes Systems reviewed as appropriate & no additional complaints except as documented Physical Exam <LITO Love - Last Filed: 01/26/25 12:49> General General appearance: alert and in no apparent distress Respiratory Respiratory exam: Present normal lung sounds bilaterally Cardiovascular Cardiovascular exam: Present regular rate Neurological Exam Neurological exam: Present alert and oriented X3 Medical Decision Making <LITO Love - Last Filed: 01/26/25 12:49> Medical Records Screening: Per USPSTF and CDC recommendations, given the prevalence of disease in our region, it is our hospital?s policy to screen for HIV and viral Hepatitis for all patients aged 18 and over and those with ongoing risk factors. González Inquiry Pt receiving controlled substance: No Vital Signs: 01/26/25 11:48 01/26/25 12:01 01/26/25 12:31 Temperature 98 F Temperature Source Temporal Artery Scan Pulse Rate 73 67 Pulse Rate [Right] 69 Respiratory Rate 18 Blood Pressure 143/95 H 120/69 Blood Pressure [Right Arm] 148/90 H Blood Pressure Mean [Right Arm] 109 Blood Pressure Source Blood Pressure Source [Right Arm] Automatic Cuff Blood Pressure Position Blood Pressure Position [Right Arm] Sitting 02 Sat by Pulse Oximetry 100 99 96 Oxygen Delivery Method Room Air Room Air Room Air 01/26/25 13:26 Temperature 98.0 F Temperature Source Oral Pulse Rate 69 Pulse Rate [Right] Respiratory Rate 16 Blood Pressure 130/91 H Blood Pressure [Right Arm] Blood Pressure Mean [Right Arm] Blood Pressure Source Automatic Cuff Blood Pressure Source [Right Arm] Blood Pressure Position Sitting Blood Pressure Position [Right Arm] 02 Sat by Pulse Oximetry Oxygen Delivery Method Room Air Orders (Tests/Meds): ED MEDICATIONS Discontinued Medications Generic Name Dose Route Start Last Admin Trade Name Freq PRN Reason Stop Dose Admin Acetaminophen 1,000 mg 01/26/25 12:14 01/26/25 12:19 Acetaminophen 500mg Tab PO 01/26/25 12:15 1,000 mg ONCE ONE Administration Ibuprofen 800 mg 01/26/25 12:14 01/26/25 12:19 Ibuprofen 400 Mg Tablet PO 01/26/25 12:15 800 mg ONCE ONE Administration Lidocaine 1 each 01/26/25 12:14 01/26/25 12:20 Lidocaine 5% Transdermal Patch TP 01/26/25 12:15 1 each ONCE ONE Administration Methocarbamol 500 mg 01/26/25 12:14 01/26/25 12:19 Methocarbamol 500mg Tablet PO 01/26/25 12:15 500 mg ONCE ONE Administration ORDERS Category Date Time Status Shoulder XR left minimum 2 views [XR shoulder LT min 2V Exams 01/26/25 12:14 Completed ] Stat Medical Decision Narrative: In summary patient is a 54-year-old female who presents to the emergency department for evaluation of left shoulder and neck pain. Patient is hemodynamically stable upon arrival, afebrile. Physical exam is remarkable for tenderness to palpation along the cervical portion of the trapezius and to lesser extent the thoracic portion, the muscle is very taut with knots, patient has tender to palpation about the shoulder girdle with tenderness over the bicipital groove underneath the AC joint however patient is neuro vastly intact has good data processing auditor strength has no paresthesias. After exam I asked the patient if she been doing any type of repetitive tasks been pulling pushing and patient states that she has been using a four-wheel exercise that she has been doing to engage her core over the 2 days previous to her discomfort. Differential diagnosis includes osteoarthritis versus overuse injury versus soft tissue such as ligament or cartilage injury etc. Initial workup will be conducted with plain film x-rays. Initial interventions include Tylenol ibuprofen Lidoderm patch and Robaxin. Initial workup reviewed by me and my informal interpretation of her shoulder imaging shows slight AC joint separation and 2 views but no definitive disruption. Upon repeat evaluation patient reports slight improvement after initial intervention. Given this I have had a shared decision-making discussion with the patient regarding her EPPERSON findings education on shoulder anatomy given her potential mechanism. I recommended conservative treatment with a referral for orthopedics and patient verbalized understanding and agreement. Given that patient is appropriate for discharge with a sling for comfort instructions for supportive and symptomatic care along with prescription Robaxin and Lidoderm. <Michelle Pratt MD - Last Filed: 01/26/25 15:43> Vital Signs: 01/26/25 11:48 01/26/25 12:01 01/26/25 12:31 Temperature 98 F Temperature Source Temporal Artery Scan Pulse Rate 73 67 Pulse Rate [Right] 69 Respiratory Rate 18 Blood Pressure 143/95 H 120/69 Blood Pressure [Right Arm] 148/90 H Blood Pressure Mean [Right Arm] 109 Blood Pressure Source Blood Pressure Source [Right Arm] Automatic Cuff Blood Pressure Position Blood Pressure Position [Right Arm] Sitting 02 Sat by Pulse Oximetry 100 99 96 Oxygen Delivery Method Room Air Room Air Room Air 01/26/25 13:26 Temperature 98.0 F Temperature Source Oral Pulse Rate 69 Pulse Rate [Right] Respiratory Rate 16 Blood Pressure 130/91 H Blood Pressure [Right Arm] Blood Pressure Mean [Right Arm] Blood Pressure Source Automatic Cuff Blood Pressure Source [Right Arm] Blood Pressure Position Sitting Blood Pressure Position [Right Arm] 02 Sat by Pulse Oximetry Oxygen Delivery Method Room Air Orders (Tests/Meds): ED MEDICATIONS Discontinued Medications Generic Name Dose Route Start Last Admin Trade Name Freq PRN Reason Stop Dose Admin Acetaminophen 1,000 mg 01/26/25 12:14 01/26/25 12:19 Acetaminophen 500mg Tab PO 01/26/25 12:15 1,000 mg ONCE ONE Administration Ibuprofen 800 mg 01/26/25 12:14 01/26/25 12:19 Ibuprofen 400 Mg Tablet PO 01/26/25 12:15 800 mg ONCE ONE Administration Lidocaine 1 each 01/26/25 12:14 01/26/25 12:20 Lidocaine 5% Transdermal Patch TP 01/26/25 12:15 1 each ONCE ONE Administration Methocarbamol 500 mg 01/26/25 12:14 01/26/25 12:19 Methocarbamol 500mg Tablet PO 01/26/25 12:15 500 mg ONCE ONE Administration ORDERS Category Date Time Status Shoulder XR left minimum 2 views [XR shoulder LT min 2V Exams 01/26/25 12:14 Completed ] Stat Medical Decision Narrative: In summary patient is a 54-year-old female who presents to the emergency department for evaluation of left shoulder and neck pain. Patient is hemodynamically stable upon arrival, afebrile. Physical exam is remarkable for tenderness to palpation along the cervical portion of the trapezius and to lesser extent the thoracic portion, the muscle is very taut with knots, patient has tender to palpation about the shoulder girdle with tenderness over the bicipital groove underneath the AC joint however patient is neuro vastly intact has good data processing auditor strength has no paresthesias. After exam I asked the patient if she been doing any type of repetitive tasks been pulling pushing and patient states that she has been using a four-wheel exercise that she has been doing to engage her core over the 2 days previous to her discomfort. Differential diagnosis includes osteoarthritis versus overuse injury versus soft tissue such as ligament or cartilage injury etc. Initial workup will be conducted with plain film x-rays. Initial interventions include Tylenol ibuprofen Lidoderm patch and Robaxin. Initial workup reviewed by me and my informal interpretation of her shoulder imaging shows slight AC joint separation and 2 views but no definitive disruption. Upon repeat evaluation patient reports slight improvement after initial intervention. Given this I have had a shared decision-making discussion with the patient regarding her EPPERSON findings education on shoulder anatomy given her potential mechanism. I recommended conservative treatment with a referral for orthopedics and patient verbalized understanding and agreement. Given that patient is appropriate for discharge with a sling for comfort instructions for supportive and symptomatic care along with prescription Robaxin and Lidoderm. I was consulted by the JUNIE, and we discussed the complexity of problems being addressed. I approved the treatment and management plan for this patient's care in the emergency department, thus performing a substantial portion of the medical decision making. Michelle Pratt MD Critical Care <LITO Love - Last Filed: 01/26/25 12:49> Critical Care Time Critical Care Time: No
[2025-01-26 12:01] VITALS: BP 143/95; PULSE 73; O2SAT 99
--- NOTE | 2025-01-26 12:14 | XR_ITS ---
PROCEDURE INFORMATION: Exam: XR Left Shoulder Exam date and time: 01/26/2025 12:09 PM Age: 54 years old Clinical indication: Pain; Shoulder; Left; Additional info: Pain in the shoulder girdle TECHNIQUE: Imaging protocol: Radiologic exam of the left shoulder. Views: 2 or more views. COMPARISON: No relevant prior studies available. FINDINGS: Bones/joints: Arthrosis of the acromioclavicular and glenohumeral joints. Soft tissues: Normal. IMPRESSION: Arthritis without fracture.
[2025-01-26] MEDS: METHOCARBAMOL 500MG TABLET 500 MG PO (12:19)
[2025-01-26] MEDS: ACETAMINOPHEN 500MG TAB 1000 MG PO (12:19)
[2025-01-26] MEDS: IBUPROFEN 400 MG TABLET 800 MG PO (12:19)
[2025-01-26] MEDS: LIDOCAINE 5% TRANSDERMAL PATCH 1 EACH TP (12:20)
[2025-01-26 12:31] VITALS: BP 120/69; PULSE 67; O2SAT 96
[2025-01-26 13:26] VITALS: BP 130/91; PULSE 69; RESP 16; TEMP 36.7; O2SAT 96
== END 2025-01-26 13:27 | disposition home or self-care (01) ==
PROVIDERS: Emergency Provider Student in an Organized Health Care Education/Training Program; PCP Nurse Practitioner Family
DX: M25.512 Pain in left shoulder (principal); M54.2 Cervicalgia
CPT/HCPCS: 73030; 99283